=== PATIENT | female | born 1945 | race Caucasian/White ===

== ENCOUNTER → 2016-10-21 | Outpatient (CLI) | payer OTHER ==
--- NOTE | 2016-10-21 09:57 | DIAGNOSTIC IMAGING REPORT ---
ABDOMINAL ULTRASOUND, RIGHT UPPER QUADRANT HISTORY: Bilateral upper quadrant abdominal pain. COMPARISON: None. FINDINGS: The liver morphology is normal. Note is made of 2 hypoechoic foci within the liver, the larger of which measures 2.6 cm. These are indeterminate. There is no biliary ductal dilatation. The common bile duct measures 6 mm in caliber. The gallbladder is normal. There are no gallstones. The pancreatic body is normal. The head and tail are partially obscured. There is no right hydronephrosis. Multiple anechoic right renal lesions measure up to 7.2 cm. These reflect cysts. IMPRESSION: 1.Two indeterminate hypoechoic foci within the liver, measuring up to 2.6 cm. Differential considerations include benign and malignant hepatic lesions, complex cysts and abscesses. A follow-up three-phase CT of the liver is recommended. 2. No gallstones or biliary ductal dilatation. 3. Multiple right renal cysts. Electronically signed by: Junior Main M.D. 10/21/2016 9:55 AM Dictated Date/Time: 10/21/2016 9:37 AM
[2016-10-21 10:35] LABS: ALT/SGPT 16 U/L (12-78); BLOOD UREA NITROGEN 10 mg/dl (7-18); BUN/CREATININE RATIO 14.3 (10-20); CALCIUM 9.5 mg/dl (8.5-10.1); CARBON DIOXIDE 36 mmol/L (21-32); CHLORIDE 96 mmol/L (98-107); CHOLESTEROL 191 mg/dl (0-200); CREATININE 0.72 mg/dl (0.60-1.20); GLUCOSE 96 mg/dl (70-99); POTASSIUM 3.3 mmol/L (3.5-5.1); SODIUM 136 mmol/L (136-145)
[2016-10-21 10:38] LABS: ALKALINE PHOSPHATASE 88 U/L (45-117); AST/SGOT 18 U/L (15-37); CHOLESTEROL/HDL RATIO 2.4; HDL CHOLESTEROL 79 mg/dl; LDL CHOLESTEROL CALCULATED 91 mg/dl; TRIGLYCERIDES 105 mg/dl (0-150); VERY LOW DENSITY LIPOPROT CALC 21 mg/dl
--- NOTE | 2016-11-02 06:30 | CODING QUERY MEDICAL NECESSITY ---
SUPPORTING DIAGNOSIS NEEDED A supporting diagnosis is required for the test/procedure performed on this patient in order for us to be reimbursed by the patient's insurance. Please provide a supporting diagnosis for the following test/procedure listed below next to the test name along with your signature. *If there is no additional diagnosis for this patient that would support the following test/procedure please document that below next to the test/procedure. Test(s)/Procedure(s) that require a supporting diagnosis: * ([id number]) VITAMIN D ASSAY DIAGNOSIS: DATE OF SERVICE: 10/21/16 Provider Signature: Date: Thank you Chas Rodriguez [facility] Information Management Once completed, please kindly fax back to [phone] For questions please call [phone]
== END | disposition home or self-care (01) ==
LOC: C.ULTR 08:50
PROVIDERS: ATTEND Nurse Practitioner Family
DX: R10.11 Right upper quadrant pain (principal); R10.12 Left upper quadrant pain; I10 Essential (primary) hypertension; Z13.220 Encounter for screening for lipoid disorders; N28.1 Cyst of kidney, acquired; K76.9 Liver disease, unspecified; Z13.21 Encounter for screening for nutritional disorder

== ENCOUNTER → 2016-11-10 | Outpatient (CLI) | payer OTHER ==
[2016-11-10 17:29] LABS: BASO % 0.2 %; BASO ABS # 0.01 K/uL (0-0.2); COMPLETE YES; EOS % 1.7 %; HEMATOCRIT 38.6 % (37-47); IG% 0.5 %; LYMPH % 19.4 %; LYMPH ABS # 1.27 K/uL (1.2-3.4); MEAN CELL VOLUME 94.8 fL (80-100); MEAN CORPUSCULAR HEMOGLOBIN 31.2 pg (25-34); MEAN CORPUSCULAR HGB CONC 32.9 g/dl (32-36); MEAN PLATELET VOLUME 9.2 fL (7.4-10.4); MONO % 6.9 %; NEUT % 71.3 %; PLATELET COUNT 271 K/uL (130-400); RED BLOOD COUNT 4.07 M/uL (4.2-5.4); WHITE BLOOD COUNT 6.53 K/uL (4.8-10.8)
[2016-11-10 18:38] LABS: HEPATITIS B AB NEG
== END | disposition home or self-care (01) ==
LOC: C.LABPVFM 11:56
PROVIDERS: ATTEND Nurse Practitioner Family
DX: R93.2 Abnormal findings on diagnostic imaging of liver and biliary tract (principal); R10.11 Right upper quadrant pain; E87.6 Hypokalemia

== ENCOUNTER → 2016-11-18 | Outpatient (CLI) | payer OTHER ==
[~2016-11-18] MED LIST: OPTIRAY 320 IV PRN
--- NOTE | 2016-11-18 11:27 | DIAGNOSTIC IMAGING REPORT ---
CT SCAN OF THE ABDOMEN COMBO LIVER PROTOCOL CLINICAL HISTORY: Follow-up liver lesions seen by ultrasound. COMPARISON STUDY: Abdominal ultrasound dated 10/21/2016. TECHNIQUE: Before and following the IV administration of 117 cc of Optiray 320, CT scan of the abdomen is performed from the lung bases to the pelvic inlet utilizing the liver protocol. Images are reviewed in the axial, sagittal, and coronal planes. IV contrast was administered without complication. The patient was reportedly premedicated for history of contrast allergy. A dose lowering technique was utilized adhering to the principles of ALARA. FINDINGS: Lung bases: The heart is normal in size and without pericardial effusion. Emphysematous change is present at the lung bases. No airspace consolidation or pleural effusion is seen within atelectasis versus scarring is present at the left lung base. There is a small hiatal hernia. Liver: The contrast-enhanced liver is normal in size, contour, and attenuation. There is no intrahepatic biliary ductal dilatation. There are scattered hepatic granulomas. There is a 3.1 cm in the right lobe of liver seen on image #100. This demonstrates peripheral nodular arterial phase enhancement and almost completely fills in on the portal venous phase images. The enhancement kinetics are consistent with a benign hemangioma. An additional 1.0 cm hemangioma is seen on image #81. Hepatic and portal vasculature: Hepatic arterial anatomy is conventional. The hepatic veins, portal veins, superior mesenteric vein, and splenic vein are patent. Gallbladder: Unremarkable. Spleen: Normal in size and attenuation. Pancreas: Unremarkable. Adrenal glands: A 1.6 cm right adrenal nodule and 2 left adrenal nodules measuring 2.1 cm and 1.[address] criteria for fat-containing adenomas. Kidneys: No renal calculi are identified on the unenhanced series. The contrast enhanced kidneys history cortical atrophy and are without hydronephrosis. The kidneys enhance symmetrically. There are numerous bilateral renal cysts. The largest arises from the lower pole the right kidney and measures 6 mm. A 1.0 cm slight hyperdense lesion in the upper pole of left kidney does not demonstrate postcontrast enhancement and is typical for a complex/hemorrhagic cyst. No enhancing mass lesion is identified. Abdominal vasculature: The abdominal aorta is normal in course and caliber noting moderate to advanced atherosclerotic calcification. There is approximately 50% stenosis of the proximal superior mesenteric artery seen on axial arterial phase image #106. This is located approximately 1 cm from the aortic takeoff. The remainder of the superior mesenteric artery is widely patent. Bowel: Visualized portions of the small bowel and colon are normal in course and caliber. There is moderate fecal retention in the partially visualized colon. Peritoneum: There is no intraperitoneal free air or abdominal ascites. There is a small fat-containing umbilical hernia. Lymphadenopathy: None. Skeletal structures: The skeletal structures are osteopenic. Lumbosacral spondylosis and scoliosis are observed. No lytic or blastic lesions are seen. IMPRESSION: 1. There are 2 hepatic lesions identified. These meet CT criteria for benign hemangiomas and likely correspond to the lesions identified by ultrasound. 2. No acute infectious or inflammatory findings are seen in the abdomen. 3. Emphysema. 4. Numerous bilateral renal cysts are identified. 5. There is approximately 50% focal stenosis within the proximal superior mesenteric artery. 6. Additional findings as above. Electronically signed by: Micheal Page M.D. 11/18/2016 11:26 AM Dictated Date/Time: 11/18/2016 11:13 AM
--- NOTE | 2016-11-18 12:28 | DIAGNOSTIC IMAGING REPORT ---
(CHEST) THORAX WITHOUT CT DOSE: 684.04 mGy.cm CLINICAL HISTORY: 71 years-old Female with ABNORMAL CT OF LIVER. Lesions of the liver suggesting hemangiomas noted on comparison CT. TECHNIQUE: Multiaxial CT images of the chest were performed without contrast. A dose lowering technique was utilized adhering to the principles of ALARA. COMPARISON: CT abdomen and pelvis of same day. FINDINGS: Heterogeneous thyroid is noted with nodules on the right measuring up to 0.9 cm. Superior pericardial recess fluid is noted. No large pericardial effusion. The thoracic aorta demonstrate mild atherosclerotic plaquing. The left vertebral artery emanates strictly from the aortic arch. No aortic aneurysm identified. Coronary arterial disease is noted. No pathologic adenopathy identified. Severe upper lobe predominant centrilobular emphysema 7 x 8 mm noncalcified pulmonary nodule is seen within the superior segment left lower lobe on image 95 of series 4 with adjacent mild pleural parenchymal scarring. Linear somewhat nodular pleural-parenchymal scarring is also present within the medial segment right middle lobe. No pneumothorax. 3 mm pleural-based noncalcified pulmonary nodule involves the right upper lobe on image 70 of series 4 with similar appearing lesion seen on image 65. These are likely benign. No lobar airspace consolidation to suggest pneumonia. Mild subpleural reticulation present within the basal lower lobes suggesting scarring. There is a spiculated 7 x 5 mm noncalcified pulmonary nodule seen on image 142 of series 4 within the left lower lobe with somewhat spiculated margins which appears suspicious. 3 mm nodule seen on image 196 of series 4 within the left lower lobe. There is a calcified granuloma the right lower lobe on image 160 of series 4. 2.6 cm partially imaged low attenuating lesion of the right hepatic lobe. Mildly low attenuating 2.4 cm lesion is also seen within the right hepatic lobe. Hyperattenuating lesion of the left kidney superior pole suggests hemorrhagic or proteinaceous cyst. Soft tissues are unremarkable. Bones appear intact. The bones are mildly osteopenic. IMPRESSION: 1. Severe upper lobe predominant centrilobular emphysema without acute cardiopulmonary process. 2. Multiple bilateral noncalcified pulmonary nodules as above with two marginally spiculated nodules present within the left lower lobe , largest of which measures up to 8 mm. Close follow-up as described below is recommended to exclude progressive abnormality. 3. Low attenuating lesions of the right hepatic lobe redemonstrated as discussed on CT abdomen and pelvis study of same day. 4. Additional incidental findings as above. Please refer to below summary of Fleischner criteria recommendations for follow-up of incidental CT nodules (Rose Ulrich, Guidelines for management of small pulmonary nodules detected on CT scans: A statement from the Fleischner Society, Radiology 237: [phone].) SOLID NODULES Solitary nodule size: <6 mm * Low risk patients: no follow-up needed * high risk patients: optional CT at 12 months Solitary nodule size: 6-8 mm * Low risk patients: follow-up at 6-12 months, then consider further follow-up at 18-24 months * high risk patients: initial follow-up CT at 6-12 months and then at 18-24 months if no change Solitary nodule size: >8 mm * either low or high risk patients - consider follow-up CT at 3 months, and/or CT-PET, and/or biopsy Multiple nodules size: <6 mm * Low risk patients: no routine follow-up * high risk patients: optional CT at 12 months Multiple nodules size: 6-8 mm * Low risk patients: follow-up at 3-6 months, then consider further follow-up at 18-24 months * high risk patients: follow-up at 3-6 months, then at 18-24 months if no change Multiple nodules size: >8 mm * Low risk patients: follow-up at 3-6 months, then consider further follow-up at 18-24 months * high risk patients: follow-up at 3-6 months, then at 18-24 months if no change Note: newly detected indeterminate nodule in persons 35 years of age or older. * Low risk patients: minimal or absent history of smoking and/or other known risk factors * high risk patients: history of smoking or of other known risk factors (e.g. first degree relative with lung cancer, or exposure to asbestos, radon, uranium) * if a nodule up to 8 mm is partly solid or is ground glass further follow-up is required after 24 months to exclude possible slow growing adenocarcinoma (SAMI) The above report was generated using voice recognition software. It may contain grammatical, syntax or spelling errors. Electronically signed by: Tevin Patricio M.D. 11/18/2016 12:27 PM Dictated Date/Time: 11/18/2016 12:17 PM
== END | disposition home or self-care (01) ==
LOC: C.CTS 09:56
PROVIDERS: ATTEND Physician Assistant
DX: R93.2 Abnormal findings on diagnostic imaging of liver and biliary tract (principal); K76.89 Other specified diseases of liver; J43.9 Emphysema, unspecified

== ENCOUNTER → 2017-04-12 | Outpatient (CLI) | payer OTHER ==
[2017-04-12 12:19] LABS: HEMATOCRIT 39.9 % (37-47); HEMOGLOBIN 13.4 g/dL (12.0-16.0); MEAN CELL VOLUME 91.5 fL (80-100); MEAN CORPUSCULAR HEMOGLOBIN 30.7 pg (25-34); MEAN CORPUSCULAR HGB CONC 33.6 g/dl (32-36); MEAN PLATELET VOLUME 8.9 fL (7.4-10.4); PLATELET COUNT 262 K/uL (130-400); RED CELL DISTRIBUTION WIDTH CV 13.2 % (11.5-14.5); RED CELL DISTRIBUTION WIDTH SD 44.3 fL (36.4-46.3); WHITE BLOOD COUNT 6.93 K/uL (4.8-10.8)
[2017-04-12 13:45] LABS: ALBUMIN 3.4 gm/dl (3.4-5.0); ALT/SGPT 20 U/L (12-78); AST/SGOT 18 U/L (15-37); BLOOD UREA NITROGEN 17 mg/dl (7-18); CALCIUM 9.1 mg/dl (8.5-10.1); CARBON DIOXIDE 32 mmol/L (21-32); CREATININE 0.92 mg/dl (0.60-1.20); GLUCOSE 98 mg/dl (70-99); POTASSIUM 3.5 mmol/L (3.5-5.1); SODIUM 130 mmol/L (136-145)
[2017-04-12 13:55] LABS: ALKALINE PHOSPHATASE 90 U/L (45-117); TOTAL PROTEIN 7.4 gm/dl (6.4-8.2)
== END | disposition home or self-care (01) ==
LOC: C.LABPVFM 10:39
PROVIDERS: ATTEND Nurse Practitioner Family
DX: E87.6 Hypokalemia (principal); R53.83 Other fatigue

== ENCOUNTER → 2017-04-24 | Outpatient (CLI) | payer OTHER ==
[2017-04-24 18:25] LABS: BLOOD UREA NITROGEN 14 mg/dl (7-18); CALCIUM 9.1 mg/dl (8.5-10.1); CARBON DIOXIDE 33 mmol/L (21-32); CREATININE 0.86 mg/dl (0.60-1.20); GLUCOSE 97 mg/dl (70-99); POTASSIUM 3.6 mmol/L (3.5-5.1); SODIUM 135 mmol/L (136-145)
== END | disposition home or self-care (01) ==
LOC: C.LABPVFM 11:19
PROVIDERS: ATTEND Nurse Practitioner Family
DX: E87.6 Hypokalemia (principal); E87.1 Hypo-osmolality and hyponatremia

== ENCOUNTER → 2017-05-17 | Outpatient (CLI) | payer OTHER ==
--- NOTE | 2017-05-17 12:52 | DIAGNOSTIC IMAGING REPORT ---
CT OF THE CHEST WITHOUT IV CONTRAST CLINICAL HISTORY: COPD. Pulmonary nodule. Smoker. COMPARISON STUDY: Chest CT November 18, 2016. CT DOSE: 205.66 mGy.cm TECHNIQUE: Axial images of the chest were obtained without IV contrast. Images were reviewed in the axial, sagittal, and coronal planes. IV contrast was not administered for this examination. A dose lowering technique was utilized adhering to the principles of ALARA. FINDINGS: No enlarged axillary, mediastinal or hilar lymph nodes are present. The size of the heart is normal. There is moderate coronary artery calcification. Central airways are patent. There is severe emphysema. There is no consolidation to suggest pneumonia. There is no pneumothorax or pleural effusion. An 8 mm x 6 mm nodule within the superior segment of the left lower lobe shown on image 78 of 321 is unchanged since exam of November 18, 2016. A 4 mm nodular density within the left lower lobe shown on prior exam has decreased in size. Therefore, this is benign. A linear left upper lobe density with slight nodularity shown on axial image 58 has developed since prior exam. A 6 mm nodular density within the left upper lobe shown on image 154 has developed since prior exam. There are no suspicious osseous lesions. A 2.7 cm intermediate attenuation right hepatic lobe lesion was shown to represent a hemangioma prior contrast enhanced CT. Bilateral adrenal nodules are unchanged. Bilateral renal lesions were shown to represent simple and hyperdense cysts on prior contrast enhanced CT. IMPRESSION: 1. No change in an 8 mm x 6 mm nodule within the superior segment of the left lower lobe since exam of November 18, 2016. This remains indeterminate. A follow-up chest CT in 6 months to ensure stability is recommended. 2. Interval development of linear density within the left upper lobe which favors scarring or atelectasis and a 6 mm nodular density within left upper lobe since prior exam. This can be assessed on follow-up chest CT. 3. Severe emphysema. 4. No acute intrathoracic findings. Electronically signed by: Junior Main M.D. 05/17/2017 12:51 PM Dictated Date/Time: 05/17/2017 11:32 AM
== END | disposition home or self-care (01) ==
LOC: C.CTS 11:07
PROVIDERS: ATTEND Internal Medicine Critical Care Medicine
DX: J44.9 Chronic obstructive pulmonary disease, unspecified (principal); R91.1 Solitary pulmonary nodule; Z87.891 Personal history of nicotine dependence

== ENCOUNTER → 2017-06-08 | Outpatient (CLI) | payer OTHER ==
[2017-06-08 17:35] LABS: BLOOD UREA NITROGEN 15 mg/dl (7-18); CALCIUM 9.1 mg/dl (8.5-10.1); CARBON DIOXIDE 37 mmol/L (21-32); CREATININE 0.83 mg/dl (0.60-1.20); GLUCOSE 89 mg/dl (70-99); POTASSIUM 3.7 mmol/L (3.5-5.1); SODIUM 136 mmol/L (136-145)
== END | disposition home or self-care (01) ==
LOC: C.LABPVFM 11:58
PROVIDERS: ATTEND Nurse Practitioner Family
DX: E87.6 Hypokalemia (principal); E55.9 Vitamin D deficiency, unspecified

== ENCOUNTER → 2017-06-28 | Day surgery (SDC) | payer OTHER ==
[2017-06-21 10:00] VITALS: Ht 157.5 cm; Wt 59.1 kg
[~2017-06-28] VITALS: Ht 157.5 cm; Wt 59.1 kg
[~2017-06-28] MED LIST changes: +500ML BSS 0.3ML EPI 1:1000PF IRRIG ONE; +ACETAMINOPHEN 325 MG TAB PO PRN; +ADVIN50/60 INH; +ALBU18002 INH; +ALBU2SYP9 INH; +AMVISC PLUS 0.8ML SYRINGE INT OCU ONE; +ATROPINE SULFATE 0.1 MG/ML 5ML SYR IV PRN; +ATV/2 PO; +BSS FLUSH ONE; +CHOL100010 PO; +ENAL1TAB31 PO; +ENDOCOAT 0.85ML SYRINGE INT OCU ONE; +EpINEphrine INJ 1MG/ML AMP 1 MG/ML AMP ONE; +FENTANYL CITRATE INJ 50 MCG/1 ML 2 ML VIAL ONE; +HYDR25TA5 PO; +LACTATED RINGER'S 1000ML 500 ML IV SCH; +LIDOCAINE 4% OP SOLN DROP CHARGE ONE; +LIDOCAINE 4% OP SOLN DROP CHARGE OPR SCH; +LIDOCAINE HCL 1% MPF 2 ML VIAL ONE; +LIDOCAINE HCL 2% 2 ML VIAL (20MG/ML) ONE; +MIDAZOLAM HCL 1 MG/ML 2ML VIAL ONE; +MIX: 4ML BSS 1ML EPI 1:1000 PF TOP ONE; +MOXIFLOXACIN OPH SOLN PER DROP CHARGE ONE; +MULT-506 PO; +ONDANSETRON INJ 2 MG/ML 2 ML VIAL ONE; -OPTIRAY 320 IV PRN; +POVIDONE-IODINE OP SOLN 30 ML BTL ONE; +PRED20TA PO; +PROPARACAINE 0.5% OP SOLN PER DROP CHARGE OPR SCH; +PROPOFOL IV EMULSION 10 MG/ML 20 ML VIAL ONE; +SPRIN/30 INH; +TOBRAMYCIN/DEXAMETHASONE OPH OINT PER APPLN CHARGE ONE
--- NOTE | 2017-06-28 12:19 | History & Physical Bridge - SC ---
H&P Re-Evaluation Bridge Note: I have examined the patient, reviewed the History & Physical and in the interval since the performance of the History & Physical I have noted the following changes of clinical significance: No changes noted
[2017-06-28] MEDS: PHENYLEPHRINE HCL 2.5% OP SOLN PER DROP CHARGE OPR SCH ×3 (12:32→12:43)
[2017-06-28] MEDS: TROPICAMIDE 1% OP SOLN PER DROP CHARGE OPR SCH ×3 (12:33→12:44)
[2017-06-28] MEDS: CYCLOPENTOLATE HCL 1% OP SOLN PER DROP CHARGE OPR SCH ×3 (12:35→12:46)
[2017-06-28] MEDS: MOXIFLOXACIN OPH SOLN PER DROP CHARGE OPR SCH ×3 (12:36→12:47)
--- NOTE | 2017-06-28 13:36 | [facility] Post Operative Brief Note ---
Immediate Operative Summary Operative Date June 28, 2017. Pre-Operative Diagnosis Cataract Right Eye Post-Operative Diagnosis Same Procedure(s) Performed Right Cataract Phacoemulsification With Intraocular Lens Implant Surgeon Dr. Kurtz [employer] Specialist Surgeon(s) None Estimated Blood Loss 0ml Findings Consistent with Post-Op Diagnosis Specimens None Anesthesia Type General Complication(s) none Disposition Accompanied Pt To Recover: no Disposition:
--- NOTE | 2017-06-28 13:38 | [facility] Operative Report ---
Operative Report Date of Service June 28, 2017. Operative Report DATE OF OPERATION: 06/28/17 PREOPERATIVE DIAGNOSIS: Senile nuclear cataract, right eye POSTOPERATIVE DIAGNOSIS: Senile nuclear cataract, right eye PROCEDURE PERFORMED: Phacoemulsification with intraocular lens implantation, right eye SURGEON: Dr. Shaun Kurtz ANESTHESIA: LMA general COMPLICATIONS: None DESCRIPTION OF PROCEDURE: After positively identifying the patient both verbally and by wristband in the preoperative area, the right eye was marked as the operative eye. The patient was then brought back to the operating room by the anesthesia and nursing staff where they were given a drop of Lidocaine and betadine into the operative eye. General anesthesia by LMA was induced by the anesthesia staff. They were then sterilely prepped and draped in the standard fashion typical for ophthalmic surgery. Steri-strips were placed along the upper eyelids to keep the lashes back, and a lid speculum was placed into the operative eye. At this point, a documented time out was performed with members of the ophthalmology, nursing, and anesthesia staffs all agreeing upon the correct patient, correct location for surgery, correct procedure, and correct type and power of intraocular lens to be implanted. The microscope was then swung into position. First, a paracentesis wound was made using a sideport blade. Then, in sequence, 1% preservative-free lidocaine followed by Endocoat viscoelastic was injected into the anterior chamber. Next , the main incision was made with a keratome blade in triplanar fashion. A sharp cystotome was introduced into the eye and used to create a tear in the anterior capsule, which was directed into a continuous curvilinear capsulorrhexis using Utrata forceps. Hydrodissection was then performed with BSS on a flat-tip cannula. Next, the phacoemulsification handpiece was introduced into the eye and used to remove the nucleus in a [id number] fashion. This was done without complication and then the irrigation-aspiration handpiece was introduced into the eye and used to remove all remaining cortical and epinuclear material. Amvisc was then injected into the anterior chamber as well as into the capsular bag and using the lens injector system, an SN60WF 22.5 D lens, serial number [id number], and expiration date 03/2022 was injected into the capsular bag and rotated into the correct position. Next, the irrigation-aspiration handpiece was used to remove all remaining Amvisc. BSS was used to hydrate the main wound, and then BSS was injected into the paracentesis site to reach physiologic pressure and then the main wound was checked and found to be watertight. The patient was given drops of Vigamox and Tobradex ointment into the operative eye, and then the surrounding area was cleaned and dried. A clear plastic shield was placed over the eye and the patient was then sat up and taken from the operating room by the anesthesia staff having tolerated the procedure well and suffering no complications. DISPOSITION: The patient was returned to the recovery room in stable condition. I attest to the content of the Intraoperative Record and any orders documented therein. Any exceptions are noted below.
--- NOTE | 2017-06-28 13:39 | Discharge Instructions-SurgCtr ---
Discharge Instructions Date of Service June 28, 2017. Visit Reason for Visit: Right Cataract Discharge Discharge Diagnosis / Problem: right cataract Discharge Goals Goal(s): Decrease discomfort, Improve function Activity Recommendations Activity Limitations: as noted below Anesthesia . Post Anesthesia Instructions: If you have had General Anesthesia or IV Sedation: * Do not drive today. * Resume driving when surgeon permits. * Do not make important decisions or sign legal documents today. * Call surgeon for: 1. Temperature elevations greater than 101 degrees F. 2. Uncontrollable pain. 3. Excessive bleeding. 4. Persistent nausea and vomiting. 5. Medication intolerance (nausea, vomiting or rash). * For nausea and vomiting use only clear liquids such as: tea, soda, bouillon until nausea subsides, then gradually increase diet as tolerated. * If you have any concerns or questions, call your surgeon's office. If physician is unavailable and it is an emergency, call 911 or go to the nearest emergency room. . Instructions / Follow-Up Instructions / Follow-Up ACTIVITY RECOMMENDATIONS: * Light activities. * You may walk outside, read, watch television. * You may notice redness on the white part of the eye and some blurry vision - this is normal. MEDICATIONS: Resume previous medications unless instructed otherwise by your surgeon. Start all eye drops at 3:30 pm today: * Eye drops (today): Prednisone - one drop in operative eye every 2 hours while awake Ofloxacin - one drop in operative eye every 2 hours while awake Ketorolac - one drop in operative eye 4 times daily SPECIAL CARE INSTRUCTIONS: * Tape plastic shield over eye to sleep at night. Call your doctor at with any concerns or problems. FOLLOW UP VISIT: Follow-up with Dr Kurtz at [facility] as scheduled. Diet Recommendations Home Diet: no limitations Procedures Procedures Performed: Right Cataract Phacoemulsification With Intraocular Lens Implant Pending Studies Studies pending at discharge: no Medical Emergencies . Who to Call and When: Medical Emergencies: If at any time you feel your situation is an emergency, please call 911 immediately. . Non-Emergent Contact Non-Emergency issues call your: Surgeon . . "Provider Documentation" section prepared by Shaun Kurtz. .
[2017-06-28 14:42] VITALS: BP 139/88; PULSE 74; O2SAT 98
--- NOTE | 2017-06-28 14:47 | Anesthesia Progress Nt - [facility] ---
Anesthesia Post Op Note Date & Time June 28, 2017 at 14:47 Vital Signs Pain Intensity: 0 Vital Signs Past 12 Hours Date Time Temp Pulse Resp B/P (MAP) Pulse Ox O2 Delivery O2 Flow Rate FiO2 06/28/17 14:42 74 12 139/88 (105) 98 Nasal Cannula 2 06/28/17 14:19 36.7 65 12 147/84 (105) 99 Nasal Cannula 2 06/28/17 14:16 149/84 06/28/17 14:15 67 21 06/28/17 14:15 68 21 100 06/28/17 14:15 36.3 59 16 149/84 100 Nasal Cannula 2 06/28/17 14:11 146/91 06/28/17 14:10 65 15 100 06/28/17 14:10 65 15 06/28/17 14:06 151/86 06/28/17 14:05 58 13 06/28/17 14:05 58 13 100 06/28/17 14:01 140/86 06/28/17 14:00 58 13 100 06/28/17 14:00 58 13 06/28/17 13:56 155/93 06/28/17 13:55 62 14 06/28/17 13:55 61 14 100 06/28/17 13:51 165/115 06/28/17 13:50 77 15 06/28/17 13:50 74 15 06/28/17 13:47 151/122 06/28/17 13:45 75 16 06/28/17 13:45 76 16 100 06/28/17 13:41 155/95 06/28/17 13:41 165/108 06/28/17 13:40 36.1 76 16 155/95 100 Mask 6 06/28/17 12:24 37.4 84 20 154/98 (116) 99 Nasal Cannula 2 Notes Mental Status: alert / awake / arousable, participated in evaluation Pt Amnestic to Procedure: Yes Nausea / Vomiting: adequately controlled Pain: adequately controlled Airway Patency, RR, SpO2: stable & adequate BP & HR: stable & adequate Hydration State: stable & adequate Anesthetic Complications: no major complications apparent
== END | disposition home or self-care (01) ==
LOC: X.SURG 12:06
PROVIDERS: ATTEND Ophthalmology
DX: H25.11 Age-related nuclear cataract, right eye (principal); J44.9 Chronic obstructive pulmonary disease, unspecified; I10 Essential (primary) hypertension; J45.909 Unspecified asthma, uncomplicated; K75.9 Inflammatory liver disease, unspecified; F41.9 Anxiety disorder, unspecified; F32.9 Major depressive disorder, single episode, unspecified; Z79.899 Other long term (current) drug therapy; Z87.891 Personal history of nicotine dependence